=== PATIENT | female | born 1990 | race African-American/Black ===

== ENCOUNTER 2016-07-02 16:52 | Inpatient (IN) | payer MEDICAID ==
[~2016-07-02] VITALS: Ht 30.5 cm; Wt 84.0 kg
[2016-07-02 18:52] LABS: Albumin 4.4 g/dL (3.4-5.0); Calcium 9.1 mg/dL (8.5-10.1); Potassium 3.3 mmol/L (3.5-5.1)
[2016-07-02 18:54] LABS: BUN/Creatinine Ratio 12.5
[2016-07-02 18:57] LABS: Basophils # (auto) 0.1 uL; Basophils % (auto) 0.4 % (0.0-2.0); Bilirubin, Total 1.2 mg/dL (0.2-1.0); Eosinophils # (auto) 0.3 uL; Eosinophils % (auto) 2.2 % (0.0-7.0); Hematocrit 46.4 % (36.0-46.0); Hemoglobin 15.9 g/dL (12.2-16.2); Lymphocytes # (auto) 3.2 uL; Lymphocytes % (auto) 23.8 % (10.0-50.0); Mean Corpuscular Hemoglobin 33.1 pg (28.0-32.0); Mean Corpuscular Hgb Conc. 34.2 g/dL (32.0-36.0); Mean Platelet Volume 10.2 fL (7.4-10.4); Monocytes # (auto) 1.1 uL; Monocytes % (auto) 7.8 % (0.0-12.0); Neutrophils # (auto) 8.9 uL; Neutrophils % (auto) 65.8 % (37.0-80.0); Platelet Count (auto) 240 10^3/uL (140-450); Red Cell Distribution Width 15.4 % (11.6-16.0); Total Protein 9.1 g/dL (6.4-8.2); White Blood Cell 13.5 10^3/uL (4.4-10.8)
[2016-07-02] MEDS ORDERED: ONDANSETRON HCL 4 MG/2 ML VIAL IV ONE (20:00)
[2016-07-02] MEDS ORDERED: MORPHINE SULFATE 4 MG/ML SYRG IV ONE (20:00)
[2016-07-02] MEDS ORDERED: SODIUM CHLORIDE 0.9% 1,000 ML IV ONE (20:00)
[2016-07-02] MEDS ORDERED: POTASSIUM CHL 10% (20 MEQ/15ML) ORAL SOLN PO ONE (21:00)
[2016-07-02] MEDS: SODIUM CHLORIDE 0.9% 1,000 ML IV SCH (21:48)
[2016-07-02] MEDS: FAMOTIDINE (10MG/ML) 2ML VL IV SCH (21:48)
[2016-07-03] MEDS: MORPHINE SULF INJ 2 MG/ML SYRINGE 1ML IV PRN ×3 (01:51→09:49)
[2016-07-03 02:05] LABS: Urine Color Yellow (Yellow); Urine Glucose Normal (Normal); Urine Granular Cast FEW /lpf (0); Urine Hyaline Cast FEW /lpf (0 - 2); Urine Mucus FEW (None Seen); Urine Nitrite Negative (Negative); Urine RBC 20 /hpf (0 - 4); Urine Squamous Epithelial Cell MOD /hpf (<5); Urine pH 5.5 (5.0-8.0)
[2016-07-03 02:12] LABS: Urine Bilirubin POSITIVE (Negative); Urine Blood 2+ /uL (Negative); Urine Ketone 4+ (Negative)
[2016-07-03 04:06] LABS: Basophils # (auto) 0 uL; Basophils % (auto) 0.4 % (0.0-2.0); Eosinophils # (auto) 0.3 uL; Eosinophils % (auto) 2.8 % (0.0-7.0); Hematocrit 38.9 % (36.0-46.0); Hemoglobin 13.4 g/dL (12.2-16.2); Lymphocytes # (auto) 2.3 uL; Lymphocytes % (auto) 25.1 % (10.0-50.0); Mean Corpuscular Hemoglobin 33.8 pg (28.0-32.0); Mean Corpuscular Hgb Conc. 34.4 g/dL (32.0-36.0); Mean Corpuscular Volume 98.4 fL (80.0-100.0); Monocytes # (auto) 0.8 uL; Monocytes % (auto) 9.1 % (0.0-12.0); Neutrophils # (auto) 5.7 uL; Neutrophils % (auto) 62.6 % (37.0-80.0); Platelet Count (auto) 197 10^3/uL (140-450); Red Cell Distribution Width 15.6 % (11.6-16.0); White Blood Cell 9.1 10^3/uL (4.4-10.8)
[2016-07-03 04:38] LABS: Albumin 3.6 g/dL (3.4-5.0); Calcium 7.8 mg/dL (8.5-10.1); Potassium 4.2 mmol/L (3.5-5.1)
[2016-07-03 04:40] LABS: BUN/Creatinine Ratio 10.9
[2016-07-03 04:43] LABS: Total Protein 7.1 g/dL (6.4-8.2)
[2016-07-03] MEDS: SODIUM CHLORIDE 0.9% 1,000 ML IV SCH ×4 (04:59→23:20)
[2016-07-03] MEDS: ONDANSETRON HCL 4 MG/2 ML VIAL IV PRN ×2 (05:34→09:49)
[2016-07-03] MEDS: FAMOTIDINE (10MG/ML) 2ML VL IV SCH ×2 (09:49→21:55)
[2016-07-03] MEDS ORDERED: FOLIC ACID 1 MG in D5W 5% 50 ML IV ONE (13:45)
[2016-07-03] MEDS ORDERED: cefTRIAXone 1GM/50ML D5W 50 ML IV ONE (13:45)
[2016-07-03] MEDS ORDERED: THIAMINE HCL 100 MG/ML 2ML VIAL IV ONE (13:45)
[2016-07-03] MEDS ORDERED: HYDROcodone-ACET 5/325MG TAB PO PRN (13:45)
[2016-07-03 16:54] VITALS: BP 130/74
[2016-07-03 22:46] VITALS: BP 132/92
[2016-07-04] MEDS: SODIUM CHLORIDE 0.9% 1,000 ML IV SCH ×2 (05:43→12:06)
[2016-07-04 06:01] VITALS: BP 129/96
[2016-07-04 06:17] LABS: Potassium 4.1 mmol/L (3.5-5.1)
[2016-07-04 06:20] LABS: BUN/Creatinine Ratio 4.9
[2016-07-04 06:36] LABS: Basophils # (auto) 0 uL; Basophils % (auto) 0.4 % (0.0-2.0); Eosinophils # (auto) 0.2 uL; Eosinophils % (auto) 3.7 % (0.0-7.0); Hemoglobin 13.3 g/dL (12.2-16.2); Lymphocytes # (auto) 1.9 uL; Lymphocytes % (auto) 29.4 % (10.0-50.0); Mean Corpuscular Hemoglobin 33.4 pg (28.0-32.0); Mean Corpuscular Volume 98.2 fL (80.0-100.0); Mean Platelet Volume 10.2 fL (7.4-10.4); Monocytes # (auto) 0.5 uL; Monocytes % (auto) 7.5 % (0.0-12.0); Neutrophils # (auto) 3.8 uL; Platelet Count (auto) 183 10^3/uL (140-450); Red Cell Distribution Width 15.5 % (11.6-16.0); White Blood Cell 6.4 10^3/uL (4.4-10.8)
[2016-07-04 08:00] VITALS: BP 129/78
[2016-07-04 08:19] VITALS: BP 129/78
[2016-07-04] MEDS ORDERED: cefTRIAXone 1GM/50ML D5W 50 ML IV SCH (09:00)
[2016-07-04] MEDS: FAMOTIDINE (10MG/ML) 2ML VL IV SCH (09:49)
[2016-07-04] MEDS ORDERED: THIAMINE HCL 100 MG/ML 2ML VIAL IV SCH (10:00)
[2016-07-04] MEDS ORDERED: FOLIC ACID 1 MG in D5W 5% 50 ML IV SCH (10:00)
[2016-07-04 12:57] VITALS: BP 110/70
[2016-07-04 13:24] VITALS: BP 141/97
== END 2016-07-04 13:50 | disposition home or self-care (01) | DRG 282 ==
LOC: ER 16:58 → TELE 16:59 → TELE-E-ADS 07-03 13:34 → TELE-WESTW 07-03 15:05
PROVIDERS: ADMIT Family Medicine; ATTEND Family Medicine
DX: K85.20 Alcohol induced acute pancreatitis without necrosis or infection (principal); K70.9 Alcoholic liver disease, unspecified; E86.0 Dehydration; E66.9 Obesity, unspecified; F10.10 Alcohol abuse, uncomplicated; K86.1 Other chronic pancreatitis; E87.6 Hypokalemia; Z80.9 Family history of malignant neoplasm, unspecified; Z87.19 Personal history of other diseases of the digestive system; Z68.1 Body mass index [BMI] 19.9 or less, adult
CPT/HCPCS: 36415; 74176; 80048; 80053; 80320; 81001; 82150; 83690; 84702; 85025; 96361; 96374; 96375; 96376; J0696; J2405; J3490; J7060

== ENCOUNTER 2017-05-19 16:02 | Emergency (ER) | payer MEDICAID ==
[~2017-05-19] VITALS: Ht 160 cm; Wt 74.8 kg
[~2017-05-19 16:02] MED LIST: OMEP20CA74 PO
[2017-05-19 17:08] LABS: Basophils # (auto) 0.1 uL; Eosinophils # (auto) 0.1 uL; Monocytes # (auto) 0.7 uL; Red Cell Distribution Width 15.2 % (11.8-14.3)
[2017-05-19 17:11] LABS: Basophils % (auto) 0.9 % (0.0-2.0); Eosinophils % (auto) 1.4 % (0.0-7.0); Hematocrit 42.4 % (36.0-46.0); Hemoglobin 14.8 g/dL (12.2-16.2); Lymphocytes # (auto) 3.2 uL; Lymphocytes % (auto) 31.4 % (10.0-50.0); Mean Corpuscular Hemoglobin 36.1 pg (28.0-32.0); Mean Corpuscular Hgb Conc. 34.8 g/dL (32.0-36.0); Mean Corpuscular Volume 103.6 fL (80.0-100.0); Monocytes % (auto) 7.4 % (0.0-12.0); Neutrophils % (auto) 58.9 % (37.0-80.0); Nucleated Red Blood Cells % 0.3 %; Platelet Count (auto) 203 10^3/uL (140-450); Red Blood Cells 4.09 10^6/uL (4.0-5.20); White Blood Cell 10.1 10^3/uL (4.4-10.8)
[2017-05-19 17:32] LABS: Albumin 3.7 g/dL (3.4-5.0); BUN/Creatinine Ratio 5.7; Bilirubin, Total 1.4 mg/dL (0.2-1.0); Calcium 8.2 mg/dL (8.5-10.1)
[2017-05-19 17:36] LABS: Potassium 2.8 mmol/L (3.5-5.1)
[2017-05-19] MEDS ORDERED: cefTRIAXone 1GM/10ml IVPUSH 10 ML IV ONE (19:15)
[2017-05-19] MEDS ORDERED: SODIUM CHLORIDE 0.9% 1,000 ML IV ONE (19:15)
[2017-05-19] MEDS ORDERED: POTASSIUM CHL 10% (20 MEQ/15ML) 15ml ORAL SOLN PO ONE (19:15)
[2017-05-19] MEDS ORDERED: LEVOFLOXACIN 500MG 100 ML IV ONE (19:15)
[2017-05-19 22:59] VITALS: BP 135/74
== END 2017-05-19 23:05 | disposition home or self-care (01) ==
LOC: ER 16:13
DX: J06.9 Acute upper respiratory infection, unspecified (principal); J02.9 Acute pharyngitis, unspecified; R09.1 Pleurisy
CPT/HCPCS: 36415; 71045; 80053; 83036; 84702; 85025; 93005; 96365; 96375; 99285; J1956; J7030

== ENCOUNTER 2017-08-05 04:32 | Emergency (ER) | payer MEDICAID ==
[~2017-08-05] VITALS: Ht 160 cm; Wt 70.3 kg
[2017-08-05] MEDS ORDERED: NIFEdipine 10 MG CAP PO ONE (05:00)
[2017-08-05 05:37] LABS: Basophils # (auto) 0.1 uL; Eosinophils # (auto) 0.1 uL; Eosinophils % (auto) 0.8 % (0.0-7.0); Hematocrit 41.2 % (36.0-46.0); Hemoglobin 14.4 g/dL (12.2-16.2); Mean Corpuscular Hemoglobin 34.2 pg (28.0-32.0); Mean Corpuscular Hgb Conc. 34.9 g/dL (32.0-36.0); Monocytes # (auto) 0.9 uL; Monocytes % (auto) 7.8 % (0.0-12.0)
[2017-08-05 05:38] LABS: Basophils % (auto) 0.6 % (0.0-2.0); Lymphocytes # (auto) 2.7 uL; Lymphocytes % (auto) 25.2 % (10.0-50.0); Mean Corpuscular Volume 97.9 fL (80.0-100.0); Neutrophils # (auto) 7.1 uL; Neutrophils % (auto) 65.6 % (37.0-80.0); Nucleated Red Blood Cells % 0.1 %; Platelet Count (auto) 190 10^3/uL (140-450); Red Blood Cells 4.21 10^6/uL (4.0-5.20); Red Cell Distribution Width 14.8 % (11.8-14.3); White Blood Cell 10.9 10^3/uL (4.4-10.8)
[2017-08-05 05:52] LABS: Alanine Aminotransferase 70 U/L (13-56); Albumin 4.2 g/dL (3.4-5.0); Alkaline Phosphatase 113 U/L (45-117); Anion Gap 14 (5-15); Aspartate Aminotransferase 106 U/L (15-37); BUN/Creatinine Ratio 5.2; Bilirubin, Total 1.3 mg/dL (0.2-1.0); Blood Urea Nitrogen 6 mg/dL (7-18); Calcium 8.5 mg/dL (8.5-10.1); Carbon Dioxide 29 mmol/L (21-32); Chloride 91 mmol/L (98-107); GFR African American 72 mL/min; GFR Non-African American 59 mL/min; Glucose 306 mg/dL (74-106); Magnesium 1.8 mg/dL (1.6-2.6); Sodium 134 mmol/L (136-145); Total Protein 8.4 g/dL (6.4-8.2)
[2017-08-05 05:54] LABS: Potassium 2.7 mmol/L (3.5-5.1)
[2017-08-05 06:00] LABS: INR 1.04 (0.9-1.15); Partial Thromboplastin Time 18.9 sec (22.64-33.71); Prothrombin Time 11.3 sec (9.37-12.3)
[2017-08-05] MEDS ORDERED: POTASSIUM CHL 10% (20 MEQ/15ML) 15ml ORAL SOLN PO ONE (06:00)
[2017-08-05] MEDS ORDERED: SODIUM CHLORIDE 0.9% 1,000 ML IV ONE (06:00)
[2017-08-05 06:23] VITALS: BP 147/99
[2017-08-05] MEDS ORDERED: HYDROcodone-ACET 5/325MG TAB PO ONE (06:45)
== END 2017-08-05 07:18 | disposition home or self-care (01) ==
LOC: ER 04:32
DX: R07.9 Chest pain, unspecified (principal); E87.6 Hypokalemia; I10 Essential (primary) hypertension
CPT/HCPCS: 36415; 71045; 80053; 83036; 83735; 83880; 84443; 84484; 85025; 85610; 85730; 93005; 94761; 96360; 99285; J7030

== ENCOUNTER 2018-05-04 14:51 | Emergency (ER) | payer MEDICAID ==
[~2018-05-04] VITALS: Ht 160 cm; Wt 61.2 kg
[2018-05-04 15:01] VITALS: BP 161/110
[2018-05-04 15:25] LABS: Hemoglobin 16.8 g/dL (12.2-16.2)
[2018-05-04 15:27] LABS: Basophils # (auto) 0 uL; Basophils % (auto) 0.5 % (0.0-2.0); Eosinophils # (auto) 0.1 uL; Eosinophils % (auto) 0.6 % (0.0-7.0); Hematocrit 48.5 % (36.0-46.0); Lymphocytes # (auto) 1.6 uL; Lymphocytes % (auto) 15.4 % (10.0-50.0); Mean Corpuscular Hgb Conc. 34.5 g/dL (32.0-36.0); Mean Corpuscular Volume 104.2 fL (80.0-100.0); Monocytes # (auto) 0.7 uL; Monocytes % (auto) 7.1 % (0.0-12.0); Neutrophils % (auto) 76.4 % (37.0-80.0); Nucleated Red Blood Cells % 0.3 %; Platelet Count (auto) 225 10^3/uL (140-450); Red Blood Cells 4.66 10^6/uL (4.0-5.20); Red Cell Distribution Width 16.2 % (11.8-14.3); White Blood Cell 10.4 10^3/uL (4.4-10.8)
[2018-05-04 15:38] LABS: Alanine Aminotransferase 113 U/L (13-56); Albumin 3.9 g/dL (3.4-5.0); Anion Gap 10 (5-15); Blood Urea Nitrogen 7 mg/dL (7-18); Calcium 8.8 mg/dL (8.5-10.1); Carbon Dioxide 31 mmol/L (21-32); Chloride 95 mmol/L (98-107); Glucose 283 mg/dL (74-106); Potassium 3.2 mmol/L (3.5-5.1); Sodium 136 mmol/L (136-145)
[2018-05-04 15:43] LABS: Alkaline Phosphatase 142 U/L (45-117); Aspartate Aminotransferase 176 U/L (15-37); BUN/Creatinine Ratio 6.1; GFR African American 72 mL/min; GFR Non-African American 59 mL/min; Total Protein 8.4 g/dL (6.4-8.2)
[2018-05-04 15:54] LABS: Urine Amorphous Crystal FEW /hpf (None Seen); Urine Bacteria FEW /hpf (None Seen); Urine Blood Negative /uL (Negative); Urine Hyaline Cast FEW /lpf (0 - 2); Urine Mucus FEW (None Seen); Urine Specific Gravity 1.021 (1.001-1.035); Urine WBC <1 /hpf (0 - 5)
== END 2018-05-04 22:48 | disposition left against medical advice (07) ==
LOC: ER 14:51
DX: R07.9 Chest pain, unspecified (principal); R20.0 Anesthesia of skin; Z53.21 Procedure and treatment not carried out due to patient leaving prior to being seen by health care provider
CPT/HCPCS: 36415; 71046; 80053; 81001; 81025; 84484; 85025; 93005

== ENCOUNTER 2018-05-28 06:22 | Emergency (ER) | payer MEDICAID ==
[~2018-05-28] VITALS: Ht 160 cm; Wt 63.5 kg
[2018-05-28 07:36] LABS: Albumin 3.4 g/dL (3.4-5.0); Calcium 8.3 mg/dL (8.5-10.1); Potassium 3.4 mmol/L (3.5-5.1)
[2018-05-28 07:37] LABS: Basophils # (auto) 0 uL; Eosinophils # (auto) 0.2 uL; Monocytes # (auto) 0.5 uL; Neutrophils # (auto) 3.5 uL; Nucleated Red Blood Cells % 0.1 %; White Blood Cell 7.1 10^3/uL (4.4-10.8)
[2018-05-28 07:38] LABS: BUN/Creatinine Ratio 6.2
[2018-05-28 07:39] LABS: Basophils % (auto) 0.7 % (0.0-2.0); Eosinophils % (auto) 2.9 % (0.0-7.0); Hematocrit 39.7 % (36.0-46.0); Hemoglobin 13.8 g/dL (12.2-16.2); Lymphocytes # (auto) 2.8 uL; Lymphocytes % (auto) 39.5 % (10.0-50.0); Mean Corpuscular Hemoglobin 35.5 pg (28.0-32.0); Mean Corpuscular Hgb Conc. 34.7 g/dL (32.0-36.0); Mean Corpuscular Volume 102.3 fL (80.0-100.0); Monocytes % (auto) 7.7 % (0.0-12.0); Neutrophils % (auto) 49.2 % (37.0-80.0); Platelet Count (auto) 201 10^3/uL (140-450); Red Blood Cells 3.87 10^6/uL (4.0-5.20); Red Cell Distribution Width 16.5 % (11.8-14.3)
[2018-05-28 07:41] LABS: Bilirubin, Total 0.6 mg/dL (0.2-1.0); Total Protein 7.6 g/dL (6.4-8.2)
[2018-05-28] MEDS ORDERED: SODIUM CHLORIDE 0.9% 1,000 ML IV ONE (07:45)
[2018-05-28 08:30] LABS: Beta HCG, Quantitative < 1 mlU/mL (1-3); Thyroid Stimulating Hormone 5.92 uIU/mL (0.358-3.74)
[2018-05-28] MEDS ORDERED: SODIUM CHLORIDE 0.9% 1,000 ML IVB ONE (08:55)
[2018-05-28] MEDS ORDERED: KETOROLAC TROMETH 30 MG/ML 1ML VIAL IV ONE (09:00)
[2018-05-28] MEDS ORDERED: PROMETHAZINE HCL 25 MG/ML 1ML IV PRN (09:00)
[2018-05-28 09:30] LABS: Urine Bacteria FEW /hpf (None Seen); Urine Blood Negative /uL (Negative); Urine Specific Gravity 1.021 (1.001-1.035); Urine WBC 2 /hpf (0 - 5)
[2018-05-28 10:49] LABS: Amphetamine Screen, Urine NEGATIVE (NEGATIVE); Barbiturate Scree,Urine NEGATIVE (NEGATIVE); Benzodiazephine Screen, Urine NEGATIVE (NEGATIVE); Cannabinoid Screen, Urine NEGATIVE (NEGATIVE); Cocaine Screen, Urine NEGATIVE (NEGATIVE); Opiate Scree,Urine NEGATIVE (NEGATIVE); Phencyclidine Screen, Urine NEGATIVE (NEGATIVE)
[2018-05-28] MEDS ORDERED: POTASSIUM EFFERVESENT TAB 25 MEQ PO ONE (11:30)
[2018-05-28] MEDS ORDERED: CYANOCOBALAMIN (B-12) 1000 MCG/1 ML VIAL IM ONE (11:30)
[2018-05-28] MEDS ORDERED: MULTIPLE VITAMIN 10 ML, MAGNESIUM SULF SDV 50% 8 MEQ in SODIUM CHLORIDE 0.9% 1,000 ML IV SCH (12:00)
[2018-05-28 15:30] VITALS: BP 145/54
== END 2018-05-28 15:47 | disposition home or self-care (01) ==
LOC: ER 06:22
DX: E11.43 Type 2 diabetes mellitus with diabetic autonomic (poly)neuropathy (principal); I10 Essential (primary) hypertension; E11.65 Type 2 diabetes mellitus with hyperglycemia; Y90.0 Blood alcohol level of less than 20 mg/100 ml; B35.3 Tinea pedis; N39.0 Urinary tract infection, site not specified; F10.920 Alcohol use, unspecified with intoxication, uncomplicated
CPT/HCPCS: 36415; 71046; 80053; 80307; 81001; 83036; 83735; 84443; 84702; 85025; 93005; 96361; 96365; 96366; 96372; 96375; 99284; J1885; J2550; J3420; J3475; J7030

== ENCOUNTER 2018-08-24 21:18 | Emergency (ER) | payer SELFPAY ==
[~2018-08-24] VITALS: Ht 165.1 cm; Wt 68.0 kg
[2018-08-24 21:25] VITALS: BP 75/28
[2018-08-24] MEDS ORDERED: SODIUM BICARBONATE 8.4% INJ 50ML SYRINGE IV ONE (21:25)
== END 2018-08-25 02:03 | disposition expired ==
LOC: EDBD 21:18 → EDUNIT# 21:18 → ER 21:24
DX: I46.9 Cardiac arrest, cause unspecified (principal); I10 Essential (primary) hypertension
CPT/HCPCS: 31500; 92950; 99291